=== PATIENT | male | born 1960 | race Two or more races ===

== ENCOUNTER 2024-04-08 11:17 | Emergency (ER) | payer SELFPAY ==
[~2024-04-08] VITALS: Ht 172.7 cm; Wt 76.0 kg
[2024-04-08 11:20] VITALS: BP 142/92; PULSE 90; RESP 16; TEMP 98.4; O2SAT 100
== END 2024-04-08 12:26 | disposition left against medical advice (07) ==
LOC: ER 11:17
DX: R51.9 Headache, unspecified (principal); Z53.21 Procedure and treatment not carried out due to patient leaving prior to being seen by health care provider